=== PATIENT | male | born 1980 | race Caucasian/White ===

== ENCOUNTER 2024-08-06 11:35 | Emergency (ER) | payer SELFPAY ==
[2024-08-06] VITALS (8 sets, daily range): BP systolic 169–170; BP diastolic 80–98; PULSE 107–128; TEMP 36.7; O2SAT 92–99; BMI 33.9
--- NOTE | 2024-08-06 11:52 | ECG_ITS ---
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
[2024-08-06] MEDS: ONDANSETRON 4 MG RAPDIS TABLET SL (12:03)
[2024-08-06 12:16] LABS: Basophils Absolute Auto 0.1 10^3/uL (0.0-0.1); Basophils Percent Auto 0.7 % (0.2-2.0); Eosinophils Absolute Auto 0.4 10^3/uL (0.0-0.7); Eosinophils Percent Auto 3.5 % (0.9-7.0); Hematocrit 39.3 % (42.0-54.0); Hemoglobin 13.6 g/dL (14.0-18.0); Immature Granulocytes Abs Auto 0.15 10^3/uL (0.00-0.03); Immature Granulocytes Pct Auto 1.3 % (0.0-0.5); Lymphocytes Percent Auto 17.5 % (20.5-60.0); Mean Corpuscular HGB Conc 34.6 g/dL (29.9-35.2); Mean Corpuscular Volume 83.8 fL (80.0-94.0); Mean Platelet Volume 10.3 fL (9.5-13.5); Monocytes Absolute Auto 0.8 10^3/uL (0.3-0.8); Neutrophils Absolute Auto 7.8 10^3/uL (1.4-6.5); Platelet Count 253 10^3/uL (150-450); Red Blood Count 4.69 10^6/uL (4.70-6.10); Red Cell Distribution Width 12.1 % (11.0-15.0); White Blood Count 11.2 10^3/uL (4.0-11.0)
[2024-08-06 12:18] LABS: Anion Gap 18.8; BUN Creatinine Ratio 7.7; Calcium 9.3 mg/dL (8.5-10.1); Carbon Dioxide 22.8 mmol/L (21.0-32.0); Chloride 99 mmol/L (98-107); Estimated GFR (African America >60 (>=60 mL/min/1.73m^2); Estimated GFR (Non-African Ame >60 (>=60 mL/min/1.73m^2); Glucose 409 mg/dL (74-106); Potassium 3.6 mmol/L (3.5-5.1); Sodium 137 mmol/L (136-145)
--- NOTE | 2024-08-06 12:24 | ED.GENADUL1 ---
HPI HPI - General Adult General Chief complaint: Overdose Stated complaint: DRUG OVERDOSE Time Seen by Provider: 08/06/24 11:43 Source: patient Mode of arrival: ambulance History of Present Illness HPI narrative: 43-year-old male to the emergency department with chief complaint of accidental overdose. Patient reports that he was at [employer] getting some lunch. He reports that he occasionally snorts heroin. He snorted some heroin while he was there. He was found to have a decreased level of responsiveness by staff there and EMS was called. EMS gave 4 of intranasal Narcan. The patient woke up and began vomiting. Patient reports he currently feels nauseous, has no other complaints. Was at his baseline health prior to the ingestion. He denies any coingestions. This was not an intentional overdose per his report. Denies any alcohol use. Related Data Previous Rx's ?Medication ?Instructions ?Recorded naloxone 4 mg/actuation nasal 4 mg intranasal Q2M PRN opioid 08/06/24 spray (Narcan) overdose #2 ea Allergies Allergy/AdvReac Type Severity Reaction Status Date / Time No Known Drug Allergies Allergy Verified 08/06/24 11:41 Opioid HPI Opioid Management Most Recent Opioid Data: No Data to Display Review of Systems ROS Status of ROS 10 or more systems reviewed and unremarkable except as noted in history and below Exam Narrative Exam Narrative: VITALS: I have reviewed the triage vital signs. GENERAL: Well developed, well appearing adult in no acute distress. NEURO: Alert and oriented. Moves all extremities. Face is symmetric and expressive. EYES: PERRL. No scleral icterus or conjunctival injection. No discharge. HENT: Normocephalic, atraumatic. Hearing is grossly intact. Nares grossly patent and without discharge. Mucous membranes moist. NECK: No JVD. Patient moves neck without restriction. CARDIO: Rhythm regular. Normal rate. No murmur, rub, or gallop. Pulses equal bilaterally in the upper and lower extremity. No lower extremity edema. PULM: Lungs clear to auscultation in all friend. No wheezes, rales, or rhonchi. No conversational dyspnea. No splinting, stridor, or accessory muscle use. GI/: Abdomen is soft and non-tender. Normoactive bowel sounds. EXTREMITIES: Symmetric muscle bulk. No joint swelling. No clubbing, cyanosis, or deformity. SKIN: Warm and dry. Normal turgor. No rash or lesions appreciated. PSYCH: Mood, affect, and interaction is appropriate to the setting. Constitutional Vital Signs, click to edit/add: Last Vital Signs Temp 98.1 F 08/06/24 11:37 Pulse 107 H 08/06/24 13:02 Resp 17 08/06/24 13:02 BP 169/98 H 08/06/24 12:30 Pulse Ox 95 08/06/24 12:30 O2 Del Method Room Air 08/06/24 12:30 Course Vital Signs Vital signs: Vital Signs Temperature 98.1 F 08/06/24 11:37 Pulse Rate 128 H 08/06/24 11:37 Respiratory Rate 18 08/06/24 11:37 Blood Pressure 170/80 H 08/06/24 11:37 Pulse Oximetry 99 08/06/24 11:37 Oxygen Delivery Method Room Air 08/06/24 11:37 Temperature 98.1 F 08/06/24 11:37 Pulse Rate 107 H 08/06/24 13:02 Respiratory Rate 17 08/06/24 13:02 Blood Pressure 169/98 H 08/06/24 12:30 Pulse Oximetry 95 08/06/24 12:30 Oxygen Delivery Method Room Air 08/06/24 12:30 Medical Decision Making MDM Narrative Medical decision making narrative: 43-year-old male to the emergency department with chief complaint of accidental heroin overdose. Mildly tachycardic, otherwise stable vitals. The patient is afebrile. Basic labs, EKG are ordered. Patient is agreeable with this. He reports that he would only stay until 2:30 PM. We discussed the risks of relapse of overdose when the medication wears off. Discussed that would like to observe him longer than this, at least 4 hours. Patient is able to ambulate without any difficulty. He is walking about. Zofran is given for his nausea. Lab is unremarkable. Hyperglycemia. EKG without evidence of ischemia. While I was seeing another patient patient decided that he was going to leave AGAINST MEDICAL ADVICE. Medical Records Medical records reviewed: Yes I reviewed the patient's medical records Lab Data Lab results reviewed: Yes I reviewed the patient's lab results Labs: Lab Results 08/06/24 Range/Units 11:59 WBC 11.2 H (4.0-11.0) 10^3/uL RBC 4.69 L (4.70-6.10) 10^6/uL Hgb 13.6 L (14.0-18.0) g/dL Hct 39.3 L (42.0-54.0) % MCV 83.8 (80.0-94.0) fL MCH 29.0 (25.9-34.0) pg MCHC 34.6 (29.9-35.2) g/dL RDW 12.1 (11.0-15.0) % Plt Count 253 (150-450) 10^3/uL MPV 10.3 (9.5-13.5) fL Neut % (Auto) 70.0 (43.0-75.0) % Lymph % (Auto) 17.5 L (20.5-60.0) % Warrick % (Auto) 7.0 (1.7-12.0) % Eos % (Auto) 3.5 (0.9-7.0) % Baso % (Auto) 0.7 (0.2-2.0) % Neut # (Auto) 7.8 H (1.4-6.5) 10^3/uL Lymph # (Auto) 2.0 (1.2-3.8) 10^3/uL Warrick # (Auto) 0.8 (0.3-0.8) 10^3/uL Eos # (Auto) 0.4 (0.0-0.7) 10^3/uL Baso # (Auto) 0.1 (0.0-0.1) 10^3/uL Abs Immat Gran (auto) 0.15 H (0.00-0.03) 10^3/uL Imm/Tot Granulo (auto) 1.3 H (0.0-0.5) % Sodium 137 (136-145) mmol/L Potassium 3.6 (3.5-5.1) mmol/L Chloride 99 (98-107) mmol/L Carbon Dioxide 22.8 (21.0-32.0) mmol/L Anion Gap 18.8 BUN 8.0 (7.0-18.0) mg/dL Creatinine 1.04 (0.70-1.30) mg/dL Est GFR ( Amer) >60 (>=60 mL/min/1.73m^2) Est GFR (Non-Af Amer) >60 (>=60 mL/min/1.73m^2) BUN/Creatinine Ratio 7.7 Glucose 409 H (74-106) mg/dL Calcium 9.3 (8.5-10.1) mg/dL ECG Data Attestation: I personally reviewed and interpreted this ECG as follows: (Sinus tachycardia at a rate of 118. No STEMI. QTc 408, normal.) Discharge Plan Discharge Stand Alone Forms: Portal Instructions Chief Complaint: Overdose Patient Disposition: Left Against Medical Advice Time of Disposition Decision: 13:51 Condition: Fair Mode of Transportation: Private Vehicle Prescriptions / Home Meds: New naloxone [Narcan] 4 mg/actuation spray,non-aerosol 4 mg intranasal Q2M PRN (Reason: opioid overdose) Qty: 2 0RF Rx Instructions: spray 1 dose into ONE nostril; alternate nostrils w each dose until help arrives Print Language: Georgian Instructions: Against Medical Advice (ED), Narcotic Withdrawal (ED), Narcotic Use Disorder (ED) Additional Instructions: Call the office of your primary care doctor to arrange for follow-up within the above-stated timeframe. Your ED visit was focused on your acute issue and does not replace primary care. You should review your labs, imaging, and diagnoses from this ED visit with your primary care physician. There may be non-emergent/ incidental findings that need further evaluation. You should review your vital signs including blood pressure with your PCP. If you were prescribed medications you should discuss possible side-effects and drug interactions with your pharmacist. Call 911 or go to the nearest Emergency Department if you develop any new or worsening symptoms. You may return at any time to continue your care. Discontinue your use of street drugs as they increase your risk of . Referrals: Viv Contreras MD [Primary Care Provider] - 1 week Discharge Date/Time: 08/06/24 13:25
== END 2024-08-06 13:25 | disposition left against medical advice (07) ==
PROVIDERS: Emergency Provider Student in an Organized Health Care Education/Training Program; PCP Family Medicine
DX: T40.1X1A Poisoning by heroin, accidental (unintentional), initial encounter (principal); Z53.29 Procedure and treatment not carried out because of patient's decision for other reasons
CPT/HCPCS: 36415; 80048; 85025; 93005; 99284; Q0162